=== PATIENT | female | born 1960 | race Caucasian/White ===

== ENCOUNTER 2016-11-10 15:51 | Emergency (ER) | payer BC ==
[~2016-11-10] VITALS: Ht 172.7 cm; Wt 90.0 kg
[~2016-11-10 15:51] MED LIST: LISI-363 PO
[2016-11-10 15:58] VITALS: PULSE 106; RESP 18; TEMP 98.6; O2SAT 98
[2016-11-10] MEDS ORDERED: CYCL1TAB29 PO (16:10)
[2016-11-10] MEDS ORDERED: MEDR4PAK PO (16:10)
[2016-11-10] MEDS ORDERED: HYDR25TA5 PO (16:11)
[2016-11-10] MEDS ORDERED: ROBA500T PO (16:32)
[2016-11-10] MEDS ORDERED: IBUP800T23 PO (16:32)
--- NOTE | 2016-11-10 16:32 | PD ---
HPI Chief Complaint: Back/ Neck Pain or Injury Time Seen by Provider: 16:28 Travel History International Travel<30 days: No Contact w/Intl Traveler<30days: No Traveled to known affect area: No History of Present Illness HPI 56-year-old female presents emergency department for evaluation of left-sided sciatica pain 2 weeks. Patient reports history of sciatica pain. She denies urinary or bowel incontinence. No fever chills. No numbness/tingling/weakness in the extremities. She cannot recall specific event to cause an injury to the back. She is currently on steroids and low-dose Flexeril and is reporting no improvement. Symptom severity is moderate. Pain is aggravated by movement and slightly relieved with rest. Similar to previous sciatica flares. PFSH Past Medical History Narrative Medical History of sciatica. Hypertension: Yes Tetanus Vaccination: Unknown Menopausal: Yes Ectopic : Yes Past Surgical History Surgical History: No Previous Surgery Gynecologic Surgery: Yes (TUBAL 19 YRS PRIOR) Social History Alcohol Use: Yes (occ) Tobacco Use: No Substance Use: No Allergies-Medications (Allergen,Severity, Reaction): Coded Allergies: No Known Allergies (Verified , 08/24/11) Reported Meds & Prescriptions Reported Meds & Active Scripts Active Ibuprofen 800 Mg Tab 800 Mg PO Q6HR PRN Robaxin (Methocarbamol) 500 Mg Tab 500 Mg PO TID Reported Hydrochlorothiazide 25 Mg Tab 25 Mg PO DAILY Flexeril (Cyclobenzaprine HCl) 10 Mg Tab 10 Mg PO TID Medrol Dosepak (Methylprednisolone) 4 Mg Dspk 4 Mg PO DIRECTED Per Pharmacist direction Review of Systems Except as stated in HPI: all other systems reviewed are Neg General / Constitutional: No: Fever Physical Exam Narrative GENERAL: Well-nourished, well-developed patient. Patient resting on stretcher in mild discomfort with movement. SKIN: Focused skin assessment warm/dry. HEAD: Normocephalic. EYES: No scleral icterus. No injection or drainage. NECK: Supple, trachea midline. No JVD or lymphadenopathy. CARDIOVASCULAR: Regular rate and rhythm without murmurs, gallops, or rubs. RESPIRATORY: Breath sounds equal bilaterally. No accessory muscle use. GASTROINTESTINAL: Abdomen soft, non-tender, nondistended. MUSCULOSKELETAL: No cyanosis, or edema. BACK: without obvious deformity. No CVA tenderness. + Tenderness to the paraspinous muscle region and the left lumbar back into the SI joint. NEUROLOGICAL: Awake and alert. Cranial nerves II through XII intact. Motor and sensory grossly within normal limits. Patient able to dorsiflex and plantarflex without difficulty. Five out of 5 muscle strength in all muscle groups. Normal speech. Data Data Last Documented VS Vital Signs Date Time Temp Pulse Resp B/P (MAP) Pulse Ox O2 Delivery O2 Flow Rate FiO2 11/10/16 16:47 11/10/16 15:58 98.6 106 18 98 Orders Orders Ketorolac Inj (Toradol Inj) (11/10/16 16:45) Orphenadrine Inj (Norflex Inj) (11/10/16 16:45) [facility] Medical Decision Making Medical Screen Exam Complete: Yes Emergency Medical Condition: Yes Differential Diagnosis SCIATICA. LUMBAR STRAIN, HERNIATED DISK Narrative Course 56-year-old female presents emergency department for evaluation of left-sided sciatica pain 2 weeks. Patient reports history of sciatica pain. She denies urinary or bowel incontinence. No fever chills. No numbness/tingling/weakness in the 70s. She cannot recall specific events. She is currently on steroids and low-dose Flexeril and is reporting no improvement. On exam patient has left sided paraspinous muscle tenderness in lumbar region. No midline spine tenderness. She has a normal neurologic exam. Normal sensation and strength in lower extremities. Normal dorsiflex and plantar flexion the left leg. Patient will be treated for sciatica. Diagnosis Primary Impression: Sciatic leg pain Referrals: Orthopedist Additional Instructions: Take the medication as prescribed. Make an appointment for follow-up with orthopedic doctor. Return to the emergency department if he developed new or worsening symptoms. Scripts Ibuprofen (Ibuprofen) 800 Mg Tab 800 MG PO Q6HR Y for PAIN, #30 TAB 0 Refills Prov: Sagrario Kapadia 11/10/16 Methocarbamol (Robaxin) 500 Mg Tab 500 MG PO TID for Muscle Spasm, #20 TAB 0 Refills Prov: Sagrario Kapadia 11/10/16 Disposition: 01 DISCHARGE HOME Condition: Stable Sagrario Kapadia Nov 10, 2016 16:32
[2016-11-10] MEDS ORDERED: ORPHENADRINE INJ 60 MG/2 ML AMP IM ONE (16:45)
[2016-11-10] MEDS ORDERED: KETOROLAC TROMETHAMINE 60 MG/2 ML (IM) VIAL IM ONE (16:45)
== END 2016-11-10 16:56 | disposition home or self-care (01) ==
LOC: PHEFT 15:51
DX: M54.32 Sciatica, left side (principal)
CPT/HCPCS: 96372; 99284; J1885; J2360